=== PATIENT | female | born 1985 | race American Indian/Alaskan Native ===

== ENCOUNTER 2020-04-12 21:40 | Emergency (ER) | payer SELFPAY ==
[2020-04-12] MEDS ORDERED: ASPIRIN 325 MG TAB PO ONE (22:00)
[2020-04-12 22:34] LABS: Basophils % (Auto) 0.7 % (0.0-1.8); Eosinophils # (Auto) 0.1 K/mm3 (0.0-0.4); Eosinophils % (Auto) 2.5 % (0.0-4.3); Hematocrit 36.5 % (30.3-42.9); Hemoglobin 12.7 gm/dl (10.1-14.3); Lymphocytes # (Auto) 2.6 K/mm3 (1.2-5.4); Lymphocytes % (Auto) 45.2 % (13.4-35.0); Mean Corpuscular HGB Conc 35 % (30-34); Mean Corpuscular Volume 88 fl (79-97); Monocytes # (Auto) 0.4 K/mm3 (0.0-0.8); Monocytes % (Auto) 6.9 % (0.0-7.3); Platelet Count 256 K/mm3 (140-440); Red Blood Count 4.15 M/mm3 (3.65-5.03); Red Cell Distribution Width 12.9 % (13.2-15.2)
[2020-04-12 22:50] LABS: BUN/Creatinine Ratio 19; Blood Urea Nitrogen 15 mg/dL (7-17); Calcium 9.2 mg/dL (8.4-10.2); Hemolysis Index 3
[2020-04-12] MEDS ORDERED: LIDOCAINE VISCOUS 2% 15 ML ORAL LIQD PO ONE (23:01)
[2020-04-12] MEDS ORDERED: ALUM-MAG HYDROXIDE-SIMETHICONE 200-200-20MG/5ML ORAL LIQD 30 ML PO ONE (23:01)
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
[2020-04-12 23:49] LABS: Alanine Aminotransferase 20 units/L (7-56); Albumin 3.8 g/dL (3.9-5)
[2020-04-12 23:50] LABS: Bilirubin,Direct < 0.2 mg/dL (0-0.2)
[2020-04-13] MEDS ORDERED: ONDANSETRON 4 MG/2 ML INJ ONE (01:00)
[2020-04-13] MEDS ORDERED: ONDANSETRON 4 MG/2 ML INJ IV ONE (01:01)
[2020-04-13] MEDS ORDERED: diphenhydrAMINE 50 MG/ML VIAL ONE (01:17)
[2020-04-13] MEDS ORDERED: diphenhydrAMINE 50 MG/ML VIAL IV ONE (01:21)
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
[2020-04-13 02:50] VITALS: BP 122/78
== END 2020-04-13 02:50 | disposition home or self-care (01) ==
LOC: ED 21:40
DX: K21.9 Gastro-esophageal reflux disease without esophagitis (principal); R07.89 Other chest pain; R10.12 Left upper quadrant pain; Z98.890 Other specified postprocedural states; Z79.899 Other long term (current) drug therapy; Z88.6 Allergy status to analgesic agent
CPT/HCPCS: 36415; 71275; 74022; 80048; 80076; 84484; 84703; 85025; 85379; 93005; 96374; 96375; 99285; J1200; J2405; Q9967

== ENCOUNTER 2021-03-01 18:09 | Emergency (ER) | payer SELFPAY ==
[2021-03-01] MEDS ORDERED: traMADol 50 MG TAB PO ONE (19:56)
[2021-03-01] MEDS ORDERED: AMOXICILLIN/K CLAV 875/125MG TAB PO ONE (19:56)
[2021-03-01] MEDS ORDERED: ONDANSETRON 4 MG ODT TAB PO ONE (19:56)
--- NOTE | 2021-03-01 20:32 | XRay Report ---
CHEST 1 VIEW INDICATION / CLINICAL INFORMATION: chest pain. FINDINGS: SUPPORT DEVICES: None. HEART / MEDIASTINUM: No significant abnormality. LUNGS / PLEURA: No significant pulmonary or pleural abnormality. No pneumothorax. ADDITIONAL FINDINGS: No significant additional findings. IMPRESSION: 1. No acute findings. Signer Name: Harish Pedraza MD Signed: 03/01/2021 8:28 PM Workstation Name: [id number]
[2021-03-01 20:44] LABS: Basophils % (Auto) 0.4 % (0.0-1.8); Eosinophils # (Auto) 0.2 K/mm3 (0.0-0.4); Eosinophils % (Auto) 2.7 % (0.0-4.3); Hematocrit 39.9 % (30.3-42.9); Hemoglobin 13.9 gm/dl (10.1-14.3); Lymphocytes # (Auto) 2.8 K/mm3 (1.2-5.4); Lymphocytes % (Auto) 44.8 % (13.4-35.0); Mean Corpuscular HGB Conc 35 % (30-34); Mean Corpuscular Volume 88 fl (79-97); Monocytes # (Auto) 0.4 K/mm3 (0.0-0.8); Monocytes % (Auto) 7.2 % (0.0-7.3); Platelet Count 260 K/mm3 (140-440); Red Blood Count 4.56 M/mm3 (3.65-5.03); Red Cell Distribution Width 12.9 % (13.2-15.2)
--- NOTE | 2021-03-01 20:50 | Emergency Department Report ---
ED General Adult HPI - General Chief complaint: Chest Pain Stated complaint: CHEST PAIN, INFECTION IN MOUTH Source: patient Mode of arrival: Ambulatory Limitations: No Limitations - History of Present Illness Initial comments: Patient is a 35-year-old -[place] female with no past medical history presents to the ED with complaint of acute onset persistent severe left max illary premolar molar toothache with swelling and painful left maxillary gingiva for the last 1 week. Patient states that in the last 2 days she has not been able to sleep or eat anything because of persistent severe pain. Patient states that the pain radiates to the left TMJ area and zygomatic area with severe headache. Patient states that she has been taking [id number] medications like Tylenol with no relief. Patient also complains of left lateral neck pain that radiates to the left chest wall with chest tightness. Patient denies dizziness, syncope, fever, chills, cough, sore throat, nasal and sinus congestion, traumatic injury, diaphoresis, abdominal pain, back pain or palpitat ions. MD Complaint: left maxillary premolar and molar toothache; left chest wall pain -: Sudden, week(s) (1) Location: mouth, chest Radiation: neck, other (chest wall) Severity scale (0 -10): 10 Quality: aching, sharp Consistency: constant Improves with: none Worsens with: eating Associated Symptoms: denies other symptoms, chest pain (left sided chest wall pain), headaches, loss of appetite, malaise. denies: confusion, cough, diaphoresis, fever/chills, nausea/vomiting, rash, seizure, shortness of breath, syncope, weakness Treatments Prior to Arrival: none - Related Data Previous Rx's Medication Instructions Recorded Last Taken Type Omeprazole 20 mg PO QDAY #20 capsule. 04/13/20 Unknown Rx Acetaminophen [Tylenol] 500 mg PO Q6HR PRN #30 tablet 03/01/21 Unknown Rx Clindamycin [Clindamycin CAP] 300 mg PO Q8HR #60 capsule 03/01/21 Unknown Rx hydrOXYzine PAMOATE [Vistaril] 25 mg PO Q12HR PRN #60 capsule 03/01/21 Unknown Rx traMADoL [Ultram] 50 mg PO Q6HR PRN #12 tablet 03/01/21 Unknown Rx Allergies Allergy/AdvReac Type Severity Reaction Status Date / Time ibuprofen Allergy Unknown Verified 04/12/20 23:09 ED Review of Systems ROS: Stated complaint: CHEST PAIN, INFECTION IN MOUTH Other details as noted in HPI Constitutional: denies: chills, fever Eyes: denies: eye pain, eye discharge, vision change ENT: dental pain (Left maxillary premolar and molar toothache; swollen severely painful left maxillary gingiva). denies: ear pain, throat pain, congestion Respiratory: denies: cough, shortness of breath, wheezing Cardiovascular: chest pain (Left-sided chest pain and tightness). denies: palpitations Endocrine: no symptoms reported Gastrointestinal: denies: abdominal pain, nausea, vomiting, diarrhea Genitourinary: denies: urgency, dysuria, discharge Musculoskeletal: denies: back pain, joint swelling, arthralgia Skin: denies: rash, lesions Neurological: headache. denies: weakness, paresthesias Psychiatric: denies: anxiety, depression Hematological/Lymphatic: denies: easy bleeding, easy bruising ED Past Medical Hx - Past Medical History Additional medical history: Eczema - Surgical History Additional Surgical History: - Social History Smoking Status: Never Smoker Substance Use Type: None - Medications Home Medications: Home Medications Medication Instructions Recorded Confirmed Last Taken Type Omeprazole 20 mg PO QDAY #20 capsule. 04/13/20 Unknown Rx Acetaminophen [Tylenol] 500 mg PO Q6HR PRN #30 tablet 03/01/21 Unknown Rx Clindamycin [Clindamycin CAP] 300 mg PO Q8HR #60 capsule 03/01/21 Unknown Rx hydrOXYzine PAMOATE [Vistaril] 25 mg PO Q12HR PRN #60 capsule 03/01/21 Unknown Rx traMADoL [Ultram] 50 mg PO Q6HR PRN #12 tablet 03/01/21 Unknown Rx ED Physical Exam - General Limitations: No Limitations General appearance: alert, in no apparent distress - Head Head exam: Present: atraumatic, normocephalic, normal inspection - Eye Eye exam: Present: normal appearance, PERRL, EOMI Pupils: Present: normal accommodation - ENT ENT exam: Present: mucous membranes moist, TM's normal bilaterally, normal external ear exam, other (Swollen, severely tender left maxillary gingiva; severely tender left maxillary premolar and molar teeth) - Neck Neck exam: Present: normal inspection, full ROM - Respiratory Respiratory exam: Present: normal lung sounds bilaterally, chest wall tenderness (Palpable left-sided chest wall tenderness). Absent: respiratory distress, wheezes, rales, rhonchi, accessory muscle use, decreased breath sounds - Cardiovascular Cardiovascular Exam: Present: regular rate, normal rhythm, normal heart sounds. Absent: systolic murmur, diastolic murmur, rubs, gallop - GI/Abdominal GI/Abdominal exam: Present: soft, normal bowel sounds. Absent: tenderness, guarding, hyperactive bowel sounds, hypoactive bowel sounds, organomegaly - Extremities Exam Extremities exam: Present: normal inspection, full ROM, normal capillary refill - Back Exam Back exam: Present: normal inspection, full ROM. Absent: tenderness, CVA tenderness (R), CVA tenderness (L), muscle spasm, paraspinal tenderness, vertebral tenderness - Neurological Exam Neurological exam: Present: alert, oriented X3, CN II-XII intact, normal gait, reflexes normal - Psychiatric Psychiatric exam: Present: normal affect, normal mood - Skin Skin exam: Present: warm, dry, intact, normal color. Absent: rash ED Course Vital Signs 03/01/21 18:26 Temperature 99 F Pulse Rate 75 Respiratory 16 Rate Blood Pressure 140/89 [Left] O2 Sat by Pulse 98 Oximetry ED Medical Decision Making - Lab Data Result diagrams: 03/01/21 20:15 03/01/21 20:15 - EKG Data EKG shows normal: sinus rhythm Rate: normal - EKG Data Interpretation: normal EKG 03/01/21 21:32 The EKG shows normal sinus rhythm with a ventricular rate of [address] or T wave abnormalities. - Radiology Data Radiology results: report reviewed, image reviewed [facility] [address] [place] [address] XRay Report Signed Patient: EBONY BEACH MR#: [id number] : 1985 Acct:[id number] Age/Sex: 35 / F ADM Date: 03/01/21 Loc: ED Attending Dr: Ordering Physician: ROSI NEWMAN Date of Service: 03/01/21 Procedure(s): XR chest 1V ap Accession Number(s): [id number] cc: ROSI NEWMAN Fluoro Time In Minutes: CHEST 1 VIEW INDICATION / CLINICAL INFORMATION: chest pain. FINDINGS: SUPPORT DEVICES: None. HEART / MEDIASTINUM: No significant abnormality. LUNGS / PLEURA: No significant pulmonary or pleural abnormality. No pneumothorax. ADDITIONAL FINDINGS: No significant additional findings. IMPRESSION: 1. No acute findings. Signer Name: Harish Pedraza MD Signed: 03/01/2021 8:28 PM Workstation Name: [id number] Transcribed By: JUSTINO Dictated By: Harish Pedraza MD Electronically Authenticated By: Harish Pderaza MD Signed Date/Time: 03/01/212027 DD/ 27 TD/TT: - Medical Decision Making This is a 35-year-old -[place] female with no past medical history presents to the ED with complaint of acute onset persistent severe left maxillary premolar molar toothache with swelling and painful left maxillary gingiva for the last 1 week. Patient states that in the last 2 days she has not been able to sleep or eat anything because of persistent severe pain. Patient states that the pain radiates to the left TMJ area and zygomatic area with severe headache. Patient states that she has been taking [id number] medications like Tylenol with no relief. Patient also complains of left lateral neck pain that radiates to the left chest wall with chest tightness. In the ED, patient is alert and oriented x3 and is not in any distress but anxious and appears to be in significant pain. Patient was treated for pain in the ED. Patient is hemodynamically stable. Chest x-ray shows no acute cardiopulmonary abnormalities or pneumonitis. All lab test results were reviewed and are all nonactionable. EKG shows normal sinus rhythm with a ventricular rate of [address] or T wave abnormalities. On reevaluation, patient pain is well controlled medications. Patient will discharge home on pain medications and antibiotics and advised to follow-up with dentist at [facility] in 7 to 10 days for reevaluation. Patient was advised return to the ED immediately if symptoms get worse. - Differential Diagnosis dental abscess; gingivitis; anxiety; dental caries; ACS Critical care attestation.: If time is entered above; I have spent that time in minutes in the direct care of this critically ill patient, excluding procedure time. ED Disposition Clinical Impression: Dental abscess, Acute gingivitis, Anxiety as acute reaction to exceptional stress Disposition: HOME / SELF CARE / HOMELESS Is pt being admited?: No Does the pt Need Aspirin: No Condition: Stable Instructions: Generalized Anxiety Disorder, Adult, Dental Abscess, [id number], Trench Mouth Additional Instructions: All lab test results were reviewed and are all nonactionable. Chest x-ray showed no acute cardiopulmonary abnormalities or pneumonitis. Your symptoms are likely due to severe pain from dental abscesses and gingivitis causing you to have significant anxiety causing chest wall tightness. Therefore take medication with food, drink plenty fluids and follow-up with your dentist at [facility] in 7 to 10 days for reevaluation. Return to the ED immediately if symptoms get worse. Prescriptions: Acetaminophen [Tylenol] 500 mg PO Q6HR PRN #30 tablet PRN Reason: Pain , Severe (7-10) Clindamycin [Clindamycin CAP] 300 mg PO Q8HR #60 capsule traMADoL [Ultram] 50 mg PO Q6HR PRN #12 tablet PRN Reason: Pain hydrOXYzine PAMOATE [Vistaril] 25 mg PO Q12HR PRN #60 capsule PRN Reason: Anxiety Referrals: [facility] [Outside] - 3-5 Days Time of Disposition: 20:51 Print Language: BULGARIAN
[2021-03-01 21:11] LABS: Alanine Aminotransferase 21 units/L (7-56); Albumin 4.3 g/dL (3.9-5); Blood Urea Nitrogen 12 mg/dL (7-17); Calcium 9.6 mg/dL (8.4-10.2); Hemolysis Index 10
[2021-03-01 21:22] LABS: BUN/Creatinine Ratio 17
[2021-03-01 22:05] VITALS: BP 121/78
--- NOTE | 2021-03-08 14:03 | Electrocardiograph Report ---
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
== END 2021-03-01 22:05 | disposition home or self-care (01) ==
LOC: ED 18:09
DX: K04.7 Periapical abscess without sinus (principal); K05.00 Acute gingivitis, plaque induced; F41.9 Anxiety disorder, unspecified; Z98.890 Other specified postprocedural states; Z79.899 Other long term (current) drug therapy
CPT/HCPCS: 36415; 71045; 80053; 84484; 85025; 93005; 99284; Q0162